=== PATIENT | male | born 2000 | race Caucasian/White ===

== ENCOUNTER 2019-11-24 13:46 | Emergency (ER) | payer OTHER ==
--- NOTE | 2019-11-24 15:29 | XRAY Report ---
PROCEDURE: Neck Soft Tissue INDICATIONS: sore throat, difficulty breathing. TECHNIQUE: 2 views of the neck were acquired. COMPARISON: Concurrent chest x-ray. FINDINGS: Airway: The airway appears patent. Soft tissues: There is a large amount of subcutaneous emphysema within the neck soft tissues bilater ally and visualized chest wall. The visualized thorax demonstrates a small amount of pneumomediastinu m. No definite pneumothorax visualized in the lung apices. Prevertebral soft tissues are normal in th ickness. The epiglottis and aryepiglottic folds appear normal. Bones: No suspicious bony lesions. Visualized cervical spine is normally aligned. IMPRESSION: 1. Extensive subcutaneous emphysema in the neck and visualized chest wall as well as pneumomediastinu m within the visualized chest. No definite pneumothorax visualized. Reviewed by: Destin Groves MD on 11/24/2019 3:28 PM PDT Approved by: Destin Groves MD on 11/24/2019 3:28 PM PDT Station ID: [id number]
--- NOTE | 2019-11-24 15:32 | ED Physician Documentation ---
History of Present Illness - Stated complaint Stated Complaint: SOA - Chief complaint Chief Complaint: Resp - History obtained from History obtained from: Patient - Additonal information Additional information: Patient comes emergency department complaining of onset Over the last couple of days of sore throat, especially with swallowing, and a feeling of some chest pain, especially with deep breath. He states that he has not been significantly dyspneic, and actually hung out with his friends last night and felt fairly well. However, this morning, he thought he noticed some swelling in his neck and chest wall, so he decided to come in. The patient denies fevers or chills. No rhinorrhea. No smoking of tobacco or marijuana. No drug use. [place] He has no history of pneumothorax. No recent trauma. The patient states he actually feels fairly well right now, And denies any other complaints at this time. No sick contacts. Review of Systems Ten Systems: 10 systems reviewed and negative Constitutional: reports: Reviewed and negative Eyes: reports: Reviewed and negative Ears: reports: Reviewed and negative Nose: reports: Reviewed and negative Throat: reports: Sore throat Cardiac: reports: Chest pain / pressure Respiratory: reports: Dyspnea GI: reports: Reviewed and negative : reports: Reviewed and negative Skin: reports: Reviewed and negative Musculoskeletal: reports: Reviewed and negative Neurologic: reports: Reviewed and negative Psychiatric: reports: Reviewed and negative Endocrine: reports: Reviewed and negative Immunocompromised: reports: Reviewed and negative PD PAST MEDICAL HISTORY - Past Medical History Past Medical History: No Cardiovascular: None Respiratory: None Neuro: None Endocrine/Autoimmune: None GI: None : None HEENT: None Psych: None Musculoskeletal: None Derm: None - Social History Does the pt smoke?: No Smoking Status: Never smoker Does the pt drink ETOH?: No PD ED PE NORMAL - Vitals Vital signs reviewed: Yes - General General: Alert and oriented X 3, No acute distress (Patient is extremely well- appearing and in no distress whatsoever.), Well developed/nourished - HEENT HEENT: Atraumatic, PERRL, EOMI, Moist mucous membranes, Pharynx benign - Neck Neck: Supple, no meningeal sign, No adenopathy, Thyroid normal, No JVD - Cardiac Cardiac: RRR, No murmur, Strong equal pulses - Respiratory Respiratory: No respiratory distress, Clear bilaterally - Abdomen Abdomen: Soft, Non tender, Non distended - Back Back: No spinal TTP - Derm Derm: Normal color, Warm and dry, No rash - Extremities Extremities: No deformity, No edema, No calf tenderness / cord - Neuro Neuro: Alert and oriented X 3, trade recruiter 2-12 intact, No motor deficit, No sensory deficit, Normal speech - Psych Psych: Normal mood, Normal affect Results - Vitals Vitals: Vital Signs - 24 hr 11/24/19 11/24/19 11/24/19 13:55 14:45 16:19 Temperature 36.8 C 36.3 C L 36.3 C L Heart Rate 109 H 92 96 Respiratory 18 16 16 Rate Blood Pressure 123/65 136/74 H 124/68 O2 Saturation 99 100 99 Oxygen O2 Source Room air - Rads (name of study) cxr Radiology: Final report received, EMP read indepedently, See rad report (Small amount of pneumomediastinum likely extending into the neck where there is extensive subcutaneous emphysema. No definite pneumothorax visualized. No evidence of tension.) soft tissue neck xr Radiology: Final report received, EMP read indepedently, See rad report (Extensive subcutaneous emphysema in the neck and visualized chest wall as well as pneumomediastinum within the visualized chest. No definite pneumothorax visualized.) PD MEDICAL DECISION MAKING - ED course Complexity details: reviewed results, re-evaluated patient, considered differential, d/w patient ED course: The patient was stable in the emergency department and extremely well-appearing. He had had symptoms for a couple of days now and have remained stable. I did discuss specifically with the radiologist whether he thought the findings on x- ray was up represented a pneumothorax, as this was my concern and he stated he did not. Given the patient's very young adult age, his normal vital signs, and the amount of time that has elapsed, I feel the patient was stable for discharge home. However, I have asked him to come back tomorrow for a repeat chest x-ray to be sure that his symptoms are not worsening and that there is no new finding of pneumothorax on his x-ray. Patient is agreeable to this plan. I do not find any evidence of pharyngitis and have not pursued swab testing for this. We have discussed the usual indications for return. Departure - Departure Disposition: 01 Home, Self Care Clinical Impression: Pneumomediastinum Condition: Stable Instructions: ED Pneumothorax Spontaneous Comments: Your chest and neck x-rays show air in the soft tissues. It appears that you have had a rupture of 1 of the air-filled structures, either your airways or from your lung, into the soft tissue. At this point in time, and the radiologist does not see free air surrounding your lung and causing compression of it. Is very important that you have close follow-up for this, however, to make sure that it does not get worse. [place] then you will need to return to the emergency department for repeat x-ray so that you can be reevaluated for any worsening. If you become very short of breath or have any feeling of airway compromise or throat swelling that is worsening, you should return immediately. Discharge Date/Time: 11/24/19 16:23
--- NOTE | 2019-11-24 15:33 | XRAY Report ---
PROCEDURE: Chest 2 View X-Ray INDICATIONS: cough TECHNIQUE: 2 views of the chest. COMPARISON: Concurrent study of the neck soft tissues. FINDINGS: Surgical changes and devices: None. Lungs and pleura: Lungs are clear. No definite pneumothorax identified. No evidence of tension. No p leural effusions. Mediastinum: There is a small amount of pneumomediastinum. Heart size is normal. Bones and chest wall: No suspicious bony abnormalities. Extensive serpiginous emphysema demonstrated within the visualized neck and superior chest wall. IMPRESSION: 1. Small amount of pneumomediastinum likely extending into the neck where there is extensive subcutan eous emphysema. 2. No definite pneumothorax visualized. No evidence of tension. Findings discussed Dr. Hutton on 11/24/2019 3:30 PM. Reviewed by: Destin Groves MD on 11/24/2019 3:32 PM PDT Approved by: Destin Groves MD on 11/24/2019 3:32 PM PDT Station ID: [id number]
[2019-11-24 16:23] VITALS: BP 124/68
== END 2019-11-24 16:23 | disposition home or self-care (01) ==
LOC: ED 13:46
DX: J98.2 Interstitial emphysema (principal)
CPT/HCPCS: 70360; 71046; 99283; 99284

== ENCOUNTER 2019-11-25 08:49 | Emergency (ER) | payer OTHER ==
--- NOTE | 2019-11-25 08:59 | ED Physician Documentation ---
PD HPI DYSPNEA - Stated complaint Stated Complaint: SOA - Chief complaint Chief Complaint: Resp - History obtained from History obtained from: Patient - History of Present Illness Timing - onset: How many days ago (2 days ago, had onset of chest pain with swallowing and deep breathing. Seen yesterday in ER and Dx with pneumomediastinum, spontaneous. To follow up with PCP or ER today for repeat imaging. His PCP clinic is closed today with holiday.) Timing - onset during: Rest Timing - details: Abrupt onset, Still present (improving today) Inciting event(s): No: URI, Immobilization/travel Worsened by: Exertion, Other (swallowing) Associated symptoms: No: Fever, Cough, Hemoptysis, Wheezing, Bilateral edema Similar symptoms before: Has not had sx before Recently seen: Emergency Dept (yesterday) Review of Systems Constitutional: denies: Fever Nose: denies: Rhinorrhea / runny nose, Congestion Throat: denies: Sore throat Cardiac: reports: Chest pain / pressure. denies: Palpitations, Pedal edema, Calf pain Respiratory: denies: Cough GI: denies: Abdominal Pain, Nausea, Vomiting, Diarrhea Skin: denies: Rash, Lesions PD PAST MEDICAL HISTORY - Past Medical History Past Medical History: Yes Cardiovascular: None Respiratory: Other Neuro: None Endocrine/Autoimmune: None GI: None : None HEENT: None Psych: None Musculoskeletal: None Derm: None - Past Surgical History Past Surgical History: No - Present Medications Home Medications: Ambulatory Orders Medication Instructions Recorded Confirmed Ibuprofen [Motrin] 600 mg PO TID PRN #25 tab 11/25/19 - Allergies Allergies/Adverse Reactions: Allergies Allergy/AdvReac Type Severity Reaction Status Date / Time No Known Drug Allergies Allergy Verified 11/25/19 08:53 - Social History Does the pt smoke?: No Smoking Status: Never smoker Does the pt drink ETOH?: No Does the pt have substance abuse?: No - Immunizations Immunizations are current?: Yes PD ED PE NORMAL - Vitals Vital signs reviewed: Yes - General General: Alert and oriented X 3, No acute distress, Well developed/nourished - HEENT HEENT: Moist mucous membranes, Pharynx benign - Neck Neck: Supple, no meningeal sign, No adenopathy, Other (subcutaneous emphysema anterior chest and medial clavicle areas. ) - Cardiac Cardiac: RRR, No murmur - Respiratory Respiratory: Clear bilaterally - Abdomen Abdomen: Soft, Non tender - Derm Derm: Normal color, Warm and dry - Extremities Extremities: No edema, No calf tenderness / cord - Neuro Neuro: Alert and oriented X 3, No motor deficit, Normal speech Results - Vitals Vitals: Vital Signs - 24 hr 11/25/19 11/25/19 11/25/19 08:53 09:09 10:15 Temperature 36.5 C 36.8 C Heart Rate 77 91 90 Respiratory 18 16 16 Rate Blood Pressure 131/92 H 111/77 116/75 O2 Saturation 100 100 100 Oxygen O2 Source Room air - Rads (name of study) chest xray Radiology: Prelim report reviewed (similar pneumomediastinum), EMP read contemporaneously (I think looks slightly improved from yesterday, particularly around left heart border and mid sternal area. ), See rad report PD MEDICAL DECISION MAKING - ED course Complexity details: reviewed old records (ER visit from yesterday), reviewed results (similar or slightly improved from yesterday. Not worse. ), considered differential, d/w patient Departure - Departure Disposition: 01 Home, Self Care Clinical Impression: Pneumomediastinum Condition: Stable Record reviewed to determine appropriate education?: Yes Instructions: ED Pneumothorax Spontaneous Follow-Up: [facility] [Provider Group] Prescriptions: Ibuprofen [Motrin] 600 mg PO TID PRN #25 tab PRN Reason: Pain Comments: Your x-ray appears similar or slightly improved from yesterday. It does not look worse. It is good that your symptoms are improving. I would have you do rest or light activity only for another 3 days after today at least. Follow-up with your primary care in the next couple of days for recheck. Once you are improved completely, after 2 to 3 weeks, I would suggest having him do pulmonary function tests to make sure your airway function is good. Return if worsening symptoms in the next couple of days. I would suggest some regular anti-inflammatories 2-3 times a day such as ibuprofen to reduce inflammation and improve discomfort. Forms: Activity restrictions Discharge Date/Time: 11/25/19 10:15
--- NOTE | 2019-11-25 09:52 | XRAY Report ---
PROCEDURE: Chest 2 View X-Ray INDICATIONS: dyspnea/ cough TECHNIQUE: 2 view(s) of the chest. COMPARISON: 11/24/2019. Correlation is also made with neck soft tissue images 11/24/2019 FINDINGS: Surgical changes and devices: None. Lungs and pleura: No pleural effusions or pneumothorax. Lungs are clear. Mediastinum: Pneumomediastinum is seen. Mediastinal contours are normal. Heart size is normal. Bones and chest wall: No suspicious bony abnormalities. Soft tissue gas can be seen involving the pickett praclavicular areas on both sides. IMPRESSION: Pneumomediastinum and neck soft tissue gas can be seen, which are similar to the prior i mages. Reviewed by: Yovany Petersen MD on 11/25/2019 8:51 AM YOLANDA Approved by: Yovany Petersen MD on 11/25/2019 8:51 AM YOLANDA Station ID: [id number]
[2019-11-25 10:28] VITALS: BP 116/75
== END 2019-11-25 10:15 | disposition home or self-care (01) ==
LOC: ED 08:49
DX: J98.2 Interstitial emphysema (principal)
CPT/HCPCS: 71046; 99283; 99284